=== PATIENT | male | born 2000 | race Caucasian/White ===

== ENCOUNTER → 2020-07-15 16:09 | Outpatient (BNVA) | payer OTHER, SELFPAY | PROVIDERS: Family Provider Family Medicine; PCP Physical Therapist; Visit Provider Nurse Practitioner | DX: S69.92XA Unspecified injury of left wrist, hand and finger(s), initial encounter (principal); X58.XXXA Exposure to other specified factors, initial encounter | CPT/HCPCS: 73110 ==

== ENCOUNTER 2020-07-17 17:57 | Emergency (ER) | payer OTHER, SELFPAY ==
[2020-07-17 18:18] VITALS: BP 167/85; PULSE 82; RESP 18; TEMP 36.3; O2SAT 98; BMI 43.0
--- NOTE | 2020-07-17 18:55 | W.ED.EXTPRO ---
HPI - Extremity Problem General: Chief complaint: Extremity Injury, Upper Stated complaint: left hand pain Time Seen by Provider: 07/17/20 18:46 History of Present Illness: HPI Narrative: Patient here today because of follow-up on wrist injury and that fiberglass splint slipped today Complaint: extremity pain Onset (ago): day(s) Pain Consistency: now resolved Location: left Severity scale (1-10): 1 Associated symptoms: Reports no associated symptoms Review of Systems Narrative: X-ray read from radiology reveals no fracture possible ulnar strain separation. Patient has follow-up appointment with Ortho on Tuesday Musc: Reports: extremity pain Psych: Denies: anxiety or depression PFSH ED PFSH: Social History (Updated 07/17/20 @ 18:23 by Matteo Barajas RN) Smoking and tobacco status: current every day smoker smokeless tobacco Alcohol intake: never Substance/Drug Use: never Physical Exam Const: COMMON NORMALS: no acute distress (Splint in place) Extremity: RIGHT UPPER EXTREMITY: Yes wrist (Patient has good range of motion wrists no swelling. Velcro splint applied) Psych: COMMON NORMALS: mental status grossly normal Course Vital Signs: Vital signs: Vital Signs Temperature 97.3 F L 07/17/20 18:18 Pulse Rate 82 07/17/20 18:18 Respiratory Rate 18 07/17/20 18:18 Blood Pressure 167/85 07/17/20 18:18 Pulse Oximetry 98 07/17/20 18:18 Discharge Plan Discharge Patient Disposition: Home Clinical Impression: Left wrist sprain Qualifiers: Encounter type: initial encounter Qualified Code(s): S63.502A - Unspecified sprain of left wrist, initial encounter Condition: Stable Prescriptions: No Action montelukast [Singulair] 10 mg tablet 10 mg PO DAILY RF: 0 albuterol sulfate [ProAir HFA] 90 mcg/actuation HFA aerosol inhaler 2 puff inhalation Q6H PRNRF: 0 Discharge Orders: Discharge ED (Routine); Ordered 07/17/20 Ordered By: Devonte Berman Referrals: Lupe Rouse [Primary Care Provider] - Discharge Diet: Usual diet Discharge Activity: Increase activity as tolerated Patient Instructions: Wrist Injury (ED), Wrist Sprain (ED) Activity Restrictions/Additional Instructions: Wear splint as needed. If wrist continues to bother you keep appoint with orthopedic clinic on schedule appointment next Tuesday. Can apply ice to area. Try to do exercises with wrist. Can take Tylenol and/or ibuprofen for discomfort. Coding Level of Care Code ED Medical Superintendent for Jennifer Arnold
== END 2020-07-17 19:14 | disposition home or self-care (01) ==
PROVIDERS: Emergency Provider Nurse Practitioner Family; PCP Physical Therapist
DX: S63.502A Unspecified sprain of left wrist, initial encounter (principal); X58.XXXA Exposure to other specified factors, initial encounter; F17.210 Nicotine dependence, cigarettes, uncomplicated
CPT/HCPCS: 29125; 99282

== ENCOUNTER 2020-07-23 14:03 | Outpatient (CLI) | payer OTHER, SELFPAY | END 2020-07-23 14:04 | disposition home or self-care (01) | LOC: SPT 14:03 | PROVIDERS: PCP Physical Therapist; Visit Provider Orthopaedic Surgery | DX: Z46.89 Encounter for fitting and adjustment of other specified devices (principal); S60.212D Contusion of left wrist, subsequent encounter; X58.XXXD Exposure to other specified factors, subsequent encounter | CPT/HCPCS: L3908 ==

== ENCOUNTER → 2022-06-26 10:19 | Outpatient (BNVA) | payer OTHER, SELFPAY | PROVIDERS: PCP Physical Therapist; Visit Provider Nurse Practitioner | DX: J02.0 Streptococcal pharyngitis (principal); J20.9 Acute bronchitis, unspecified | CPT/HCPCS: 87880 ==

== ENCOUNTER 2023-02-07 19:03 | Emergency (ER) | payer OTHER, SELFPAY ==
[2023-02-07 19:18] VITALS: BP 119/77; PULSE 77; RESP 18; TEMP 36.6; O2SAT 97; BMI 43.5
--- NOTE | 2023-02-07 19:29 | ED_ITS ---
HPI - URI/Sore Throat General: Chief Complaint: Upper Respiratory Infection Stated Complaint: Sore Throat\N Time Seen by Provider: 02/07/23 19:20 History of Present Illness: 22-year-old male patient comes in today with complaints of sore throat and generalized malaise. Patient reports symptoms started this morning. Patient appears nontoxic. Patient appears no acute distress. Associated symptoms: Reports chills and nausea; Deny diarrhea or vomiting Review of Systems General: Reports: 10 or more systems reviewed and unremarkable except in HPI and below Const: Reports: chills ENMT: Reports: throat pain Resp: Denies: productive cough GI: Reports: nausea; Denies: vomiting, diarrhea or constipation PFSH ED PFSH: Social History Smoking and tobacco status: current every day smoker smokeless tobacco Alcohol intake: never Substance/Drug Use: never Physical Exam Const: COMMON NORMALS: alert HENMT: COMMON NORMALS: normocephalic HEAD & SCALP: normocephalic THROAT: posterior oropharynx abnormal erythema Neck/C-Spine: COMMON NORMALS: full ROM and no lymphadenopathy Resp: COMMON NORMALS: normal respiratory effort and clear to auscultation bilaterally AUSCULTATION: clear to auscultation bilaterally Cardio: COMMON NORMALS: regular rate RATE: regular rate Extremity: COMMON NORMALS: no pedal edema Neuro: SENSORIUM/ORIENTATION: Yes alert Skin: COMMON NORMALS: turgor normal GENERAL SKIN EXAM: turgor normal Course Vital Signs: Vital signs: Vital Signs Temperature 97.9 F 02/07/23 19:18 Pulse Rate 77 02/07/23 19:18 Respiratory Rate 18 02/07/23 19:18 Blood Pressure 119/77 02/07/23 19:18 Pulse Oximetry 97 02/07/23 19:18 Oxygen Delivery Me thod Room Air 02/07/23 19:18 MDM - URI/Sore Throat Medical Decision Making 22-year-old male patient comes in today with complaints of sore throat and malaise. On exam patient's posterior pharynx is erythematous. Lungs are clear to auscultation. Abdomen soft nontender. Patient moves all extremities well. Differential diagnosis includes not limited to strep pharyngitis, upper respiratory infection, viral syndrome. Strep test was negative. COVID PCR test was sent to lab and was outstanding at discharge. Antigen test was not sent due to illness just starting today. Patient knows to contact ER for final results in 2 to 3 hours. Patient was given work note for 2 days. Patient was stable and discharged home with supportive care instructions. Lab Data Laboratory Results Group A Strep Rapid Negative (Negative) 02/07/23 19:34 Discharge Plan Discharge Patient Disposition: Home Clinical Impression: Upper respiratory infection Qualifiers: URI type: unspecified URI Qualified Code(s): J06.9 - Acute upper respiratory infection, unspecified Condition: Stable Prescriptions: No Action montelukast [Singulair] 10 mg tablet 10 mg PO DAILY albuterol sulfate [ProAir HFA] 90 mcg/actuation HFA aerosol inhaler 2 puff inhalation Q6H PRN (DME) Cock Up Splint See Rx Instructions .ROUTE .MEDSUPPLY Qty: 1 0RF Rx Instructions: As directed prednisone 20 mg tablet 40 mg PO DAILY 5 Days Qty: 10 0RF benzonatate 200 mg capsule 200 mg PO TID PRN (Reason: cough) Qty: 30 0RF doxycycline hyclate 100 mg capsule 100 mg PO BID 7 Days Qty: 14 0RF Discharge Orders: Discharge ED (Routine); Ordered 02/07/23 Ordered By: Lyndon Riley Referrals: Lupe Rouse [Primary Care Provider] - Discharge Diet: Usual diet Discharge Activity: Increase activity as tolerated Patient Instructions: Upper Respiratory Infection (ED) Activity Restrictions/Additional Instructions: Home and rest. Drink plenty of water and fluids. Use acetaminophen and ibuprofen for discomfort. Follow-up with primary care as needed. Return to emergency department for worsening symptoms such as high fever greater than 100.4, inability to hold fluids down, increasing shortness of breath or severe chest pain. Stand Alone Forms: Work/School Release Coding Level of Care Code ED Human Resources Executive for Jennifer Arnold
[2023-02-07 20:04] LABS: Rapid Strep A Test Negative (Negative)
[2023-02-07 21:54] LABS: Adenovirus Not Detected (NOT DETECT); Chlamydia Pneumoniae Not Detected (NOT DETECT); Human Metapneumovirus Not Detected (NOT DETECT); Human Rhinovirus/Enterovirus Not Detected (NOT DETECT); Influenza A Not Detected (NOT DETECT); Influenza A H1 Not Detected (NOT DETECT); Influenza A H1-2009 Not Detected (NOT DETECT); Influenza A H3 Not Detected (NOT DETECT); Influenza B Not Detected (NOT DETECT); Mycoplasma Pneumoniae Not Detected (NOT DETECT); Parainfluenza Virus Type 1 Not Detected (NOT DETECT); Parainfluenza Virus Type 2 Not Detected (NOT DETECT); Parainfluenza Virus Type 3 Not Detected (NOT DETECT); Parainfluenza Virus Type 4 Not Detected (NOT DETECT); Respiratory Syncytial Virus A Not Detected (NOT DETECT); Respiratory Syncytial Virus B Not Detected (NOT DETECT); SARS-COV-2 Not Detected (NOT DETECT)
[2023-02-07 22:31] LABS: Coronavirus 229E,HKU1,NL63,OC4 Detected (NOT DETECT)
--- NOTE | 2023-02-07 22:35 | PC.NURSE ---
attempted to call pt with positive covid results. pt did not answer the phone and wa not able t leave a voicemail
== END 2023-02-07 20:28 | disposition home or self-care (01) ==
PROVIDERS: Emergency Provider Nurse Practitioner Family; PCP Physical Therapist
DX: J06.9 Acute upper respiratory infection, unspecified (principal); F17.220 Nicotine dependence, chewing tobacco, uncomplicated; Z20.822 Contact with and (suspected) exposure to COVID-19
CPT/HCPCS: 87081; 87635; 87880; 99283

== ENCOUNTER 2023-04-23 15:35 | Emergency (ER) | payer OTHER, SELFPAY ==
--- NOTE | 2023-04-23 16:01 | ECG_ITS ---
[facility] Test Date: 2023-04-23 Pat Name: Taco Mariee Department: Room: Gender: Male [employer] [employer]: : 2000 Requested By: Dejuan Weeks Order Number: [id number] Tosin MD: Jeanne Dai M.D. Measurements Intervals [place] Rate: 84 P: 40 MS: 150 QRS: 32 QRSD: 100 T: 11 QT: 332 QTc: 394 Interpretive Statements SINUS RHYTHM WITH MARKED SINUS ARRHYTHMIA No previous ECG available for comparison Normal EKG Electronically Signed On 04-24-2023 13:46:00 CLINICAL MICROBIOLOGIST by Jeanne Dai M.D. [id number]
--- NOTE | 2023-04-23 16:01 | XRR_ITS ---
PROCEDURE INFORMATION: Exam: XR Chest Exam date and time: 04/23/2023 4:27 PM Age: 23 years old Clinical indication: Other: Syncope TECHNIQUE: Imaging protocol: Radiologic exam of the chest. Views: 1 view. COMPARISON: No relevant prior studies available. FINDINGS: Lungs: Unremarkable. No consolidation. Pleural spaces: Unremarkable. No pleural effusion. No pneumothorax. Heart/Mediastinum: Unremarkable. No cardiomegaly. Bones/joints: Mild scoliosis. XR/XR chest 1V portable [id number] IMPRESSION: No acute disease.
[2023-04-23 16:04] VITALS: BP 150/74; PULSE 75; RESP 18; TEMP 36.7; O2SAT 98; BMI 41.4
[2023-04-23 17:47] LABS: Basophils # 0.1 10^3/uL (0.0-0.1); Basophils % 0.6 %; Eosinophils # 0.4 10^3/uL (0.0-0.8); Eosinophils % 3.1 %; Hematocrit 46.8 % (37-53); Lymphocytes # 2.1 10^3/uL (0.8-4.8); Lymphocytes % 16.7 %; Mean Corpuscular HGB Conc 34.6 g/dL (30-55); Mean Corpuscular Hemoglobin 29.4 pg (27-33); Mean Corpuscular Volume 84.9 fl (82-101); Mean Platelet Volume 9.6 fL (7.4-10.4); Monocytes # 0.7 10^3/uL (0.2-0.9); Neutrophils # 8.93 10^3/uL (1.8-7.7); Nucleated Red Blood Cells % 0 %; Platelet Count 259 10^3/cmm (157-399); Red Blood Count 5.51 10^6/uL (3.85-5.65); Red Cell Distribution Width 12.1 % (12.1-15.1); White Blood Count 12.24 10^3/uL (3.29-11.43)
[2023-04-23 18:01] LABS: Alanine Aminotransferase 28 U/L (0-41); Albumin Level 4.3 g/dL (3.5-5.2); Alkaline Phosphatase 72 U/L (40-130); Aspartate Amino Transferase 17 U/L (0-40); Blood Urea Nitrogen 16 mg/dL (6-20); Calcium 9.2 mg/dL (8.5-10.5); Carbon Dioxide 23 mmol/L (22-29); Chloride 105 mmol/L (98-107); Globulin 2.7 g/dL (1.3-4.6); Glomerular Filtration Rate 118.8 mL/min (90-130); Glucose 89 mg/dL (65-115); Osmolality Calculated 289 mOsm/kg (285-295); Sodium 139 mmol/L (136-145); Total Bilirubin 0.4 mg/dL (0.15-1.2)
== END 2023-04-23 20:01 | disposition left against medical advice (07) ==
PROVIDERS: Emergency Medicine; Emergency Provider Family Medicine; PCP Physical Therapist
DX: Z53.21 Procedure and treatment not carried out due to patient leaving prior to being seen by health care provider (principal)
CPT/HCPCS: 71045; 80053; 85025; 93005; 93010; 99285

== ENCOUNTER 2023-08-03 09:13 | Outpatient (CLI) | payer OTHER, SELFPAY ==
--- NOTE | 2023-08-03 09:23 | XRR_ITS ---
PROCEDURE INFORMATION: Exam: XR Left Finger(s) Exam date and time: 08/03/2023 9:30 AM Age: 23 years old Clinical indication: Injury or trauma; Other: Smashed left finger in piston press; Crushing; Index finger; Additional info: [place] to index finger TECHNIQUE: Imaging protocol: Radiologic exam of the left fingers. Views: Minimum 2 views. COMPARISON: CR XR wrist LT min 3V* [id number] 07/15/2020 4:11 PM FINDINGS: Bones/joints: Small bone fragment from the tip of the bony ungual tuft of the index finger. No more proximal fracture is seen. Soft tissues: Normal. XR/XR finger LT min 2V [id number] IMPRESSION: Small fracture through the bony ungual tuft.
== END 2023-08-03 09:14 | disposition home or self-care (01) ==
LOC: RAD 09:14
PROVIDERS: PCP Physical Therapist; Visit Provider Nurse Practitioner Family
DX: S62.631A Displaced fracture of distal phalanx of left index finger, initial encounter for closed fracture (principal); W31.89XA Contact with other specified machinery, initial encounter
CPT/HCPCS: 73140

== ENCOUNTER 2023-08-03 10:50 | Emergency (ER) | payer OTHER, SELFPAY ==
[2023-08-03 11:01] VITALS: BP 161/105; PULSE 72; RESP 18; TEMP 36.7; O2SAT 99
[2023-08-03] MEDS: tetanus-dipt-pertussis 0.5 mL SDV IM (12:08)
[2023-08-03] MEDS: ceFAZolin 1,000 mg SDV 1000 MG IVP (12:09)
[2023-08-03] MEDS: bacitracin ointment Pkt 1 EACH TOPICAL (12:09)
--- NOTE | 2023-08-03 12:24 | PC.NURSE ---
wrapped pt's L index finger with non-stick dressing and gauze wrap. cleaned with normal saline & betadine around wound site.
--- NOTE | 2023-08-03 12:38 | ED_ITS ---
HPI - Extremity Problem General: Chief complaint: Extremity Injury, Upper Stated complaint: left hand pointer finger injury Time Seen by Provider: 08/03/23 11:18 History of Present Illness: 23-year-[facility] of left index finger injury. He was at work using a machine type of press when he got an avulsion injury over the medial aspect of the distal tip of the left index finger. No other injury. Associated symptoms: Deny chest pain or fever(s) Review of Systems Const: Denies: fever(s) or chills Card: Denies: chest pain Resp: Denies: dyspnea GI: Denies: abdominal pain PFSH ED PFSH: Social History Smoking and tobacco/nicotine status: current every day tobacco/nicotine user smokeless tobacco Alcohol intake: never Substance/Drug Use: never Physical Exam Const: COMMON NORMALS: no acute distress GENERAL APPEARANCE: cooperative and comfortable ORIENTATION/CONSCIOUSNESS: Yes awake, Yes oriented to person, Yes oriented to place and Yes oriented to time HENMT: COMMON NORMALS: normocephalic, atraumatic and hearing grossly normal bilaterally HEAD & SCALP: normocephalic and atraumatic Extremity: OTHER: Examination of the left index finger the tissue on the palmar side of the distal phalanx is avulsed on the medial half. No active bleeding no exposed bone. The nailbed itself is not involved Neuro: SENSORIUM/ORIENTATION: Yes oriented to person, Yes oriented to place and Yes oriented to time Skin: COMMON NORMALS: no rashes or lesions noted GENERAL SKIN EXAM: no rashes or lesions noted Course Vital Signs: Vital signs: Vital Signs Temperature 98.1 F 08/03/23 11:01 Pulse Rate 72 08/03/23 11:01 Respiratory Rate 18 08/03/23 11:01 Blood Pressure 161/105 08/03/23 11:01 Pulse Oximetry 99 08/03/23 11:01 Oxygen Delivery Me thod Room Air 08/03/23 11:01 MDM - Extremity (Nontraumatic) Medical Decision Making Avulsion of the finger pad. The bone is not fully exposed there is a distal tuft fracture. Patient was given tetanus update also given Ancef. Discharged home on oral antibiotics and topical antibiotic wound care changes daily. I discussed Dr. Petersen he will see the patient tomorrow in the office. Trial for healing by secondary intent if able if uncomfortable needing revision depending on how this progresses for him discussed with patient he expresses understanding. Patient should be off work until released by orthopedics. Medical Records I reviewed the patient's medical records. Lab Data I reviewed the patient's lab results. (X-rays) All radiology interpretation(s) finalized by discharge Discharge Plan Discharge Patient Disposition: Home Clinical Impression: Avulsion of finger tip, Open fracture of tuft of distal phalanx of finger Condition: Stable Prescriptions: New hydrocodone-acetaminophen 5-325 mg tablet 1 tab PO Q6H PRN (Reason: pain) Qty: 20 0RF Bactrim DS 800-160 mg tablet 1 tab PO BID 7 Days Qty: 14 0RF No Action montelukast [Singulair] 10 mg tablet 10 mg PO DAILY PRN (Reason: allergies) (DME) Cock Up Splint See Rx Instructions .ROUTE .MEDSUPPLY Qty: 1 0RF Rx Instructions: As directed cephalexin 500 mg capsule 500 mg PO TID 7 Days Qty: 21 0RF Discharge Orders: Discharge ED (Routine); Ordered 08/03/23 Ordered By: Ellis Huang Referrals: Lupe Rouse [Primary Care Provider] - Discharge Diet: Usual diet Discharge Activity: Limit activity as instructed Patient Instructions: Opioid Safety, Pain Management Activity Restrictions/Additional Instructions: Thank you for choosing [facility] for your healthcare needs today. Please realize this is an emergency room and that we are providing you with a medical screening exam and this may not be complete and all inclusive of all the testing and or work up that you may need to determine your ailment or severity of your illness. It is very important that you follow up as instructed or that you return to the Emergency Department should you have concerns or if your condition changes or worsens in any way. Case management will contact you to make arrangements for follow-up with orthopedics for care of the injury. Stand Alone Forms: Work/School Release Coding Level of Care Code ED Box Sealing Inspector for Jennifer Arnold
--- NOTE | 2023-08-03 18:00 | DCPLANNER ---
message sent to ortho for a follow up.
== END 2023-08-03 13:12 | disposition home or self-care (01) ==
PROVIDERS: Emergency Provider Family Medicine; PCP Physical Therapist
DX: S61.211A Laceration without foreign body of left index finger without damage to nail, initial encounter (principal); S62.631B Displaced fracture of distal phalanx of left index finger, initial encounter for open fracture; F17.220 Nicotine dependence, chewing tobacco, uncomplicated; W31.89XA Contact with other specified machinery, initial encounter; Y99.0 Civilian activity done for income or pay; Z23 Encounter for immunization
CPT/HCPCS: 90715; 96374; 99284; J0690

== ENCOUNTER 2023-08-03 18:46 | Emergency (ER) | payer OTHER, SELFPAY ==
[2023-08-03 19:01] VITALS: BP 143/82; PULSE 72; RESP 15; TEMP 36.7; O2SAT 99
--- NOTE | 2023-08-03 19:22 | ED_ITS ---
HPI - Extremity Problem General: Chief complaint: Extremity Injury, Upper Stated complaint: bleeding post injury Time Seen by Provider: 08/03/23 19:03 Source: patient Mode of arrival: ambulatory Limitations: no limitations History of Present Illness: 23-year-old male who had smashed his lef t index finger earlier today he is seen here he does have a open tuft fracture he is set up to see hand surgery in [place] he states that he had rinsed his finger and had some bleeding is since stopped he went to have the wound rechecked he denies any new injuries or changes Associated symptoms: Deny chest pain or fever(s) Review of Systems Const: Denies: fever(s), chills, body aches or change in appetite ENMT: Denies: throat pain or dental pain Card: Denies: chest pain Resp: Denies: dyspnea GI: Denies: abdominal pain, nausea, vomiting or diarrhea Musc: Denies: neck pain or back pain PFSH ED 2 PFSH: Social History Smoking and tobacco/nicotine status: current every day tobacco/nicotine user smokeless tobacco Alcohol intake: never Substance/Drug Use: never Physical Exam Const: COMMON NORMALS: no acute distress, patient oriented x3 and healthy appearing HENMT: COMMON NORMALS: normocephalic and atraumatic HEAD & SCALP: normocephalic and atraumatic Neck/C-Spine: COMMON NORMALS: full ROM Chest: COMMONS NORMALS: normal inspection of the chest Resp: COMMON NORMALS: normal respiratory effort Extremity: COMMON NORMALS: full ROM NARRATIVE EXTREMITY EXAM: Patient does have 1 distal tip of left finger no active bleeding at this time no erythema Neuro: COMMON NORMALS: patient oriented x3, moves all extremities and no focal motor deficits Psych: COMMON NORMALS: mental status grossly normal, Normal thought process present and cooperative THOUGHT PROCESS: Normal thought process present Skin: COMMON NORMALS: no rashes or lesions noted GENERAL SKIN EXAM: no rashes or lesions noted Course Vital Signs: Vital signs: Vital Signs Temperature 98.0 F 08/03/23 19:01 Pulse Rate 72 08/03/23 19:01 Respiratory Rate 15 08/03/23 19:01 Blood Pressure 143/82 08/03/23 19:01 Pulse Oximetry 99 08/03/23 19:01 Oxygen Delivery Me thod Room Air 08/03/23 19:01 MDM - Extremity (Nontraumatic) Medical Decision Making Patient presents here for wound check he has no active bleeding wounds well- appearing did redress that he is to follow-up with hand surgery as scheduled Medical Records I reviewed the patient's medical records. No radiology studies performed this visit Discharge Plan Discharge Patient Disposition: Home Clinical Impression: Avulsion of finger tip, Visit for wound check Condition: Stable Prescriptions: No Action montelukast [Singulair] 10 mg tablet 10 mg PO DAILY PRN (Reason: allergies) (DME) Cock Up Splint See Rx Instructions .ROUTE .MEDSUPPLY Qty: 1 0RF Rx Instructions: As directed cephalexin 500 mg capsule 500 mg PO TID 7 Days Qty: 21 0RF hydrocodone-acetaminophen 5-325 mg tablet 1 tab PO Q6H PRN (Reason: pain) Qty: 20 0RF Bactrim DS 800-160 mg tablet 1 tab PO BID 7 Days Qty: 14 0RF Discharge Orders: Discharge ED (Routine); Ordered 08/03/23 Ordered By: Cora Das Referrals: Lupe Rouse [Primary Care Provider] - Discharge Diet: Advance as tolerated Discharge Activity: Resume usual activity Patient Instructions: Wound Care (General) Coding Level of Care Code ED Global Engineering Manager for Jennifer Arnold
== END 2023-08-03 19:30 | disposition home or self-care (01) ==
PROVIDERS: Emergency Provider Emergency Medicine; PCP Physical Therapist
DX: Z48.00 Encounter for change or removal of nonsurgical wound dressing (principal); S61.211A Laceration without foreign body of left index finger without damage to nail, initial encounter; F17.220 Nicotine dependence, chewing tobacco, uncomplicated; X58.XXXA Exposure to other specified factors, initial encounter
CPT/HCPCS: 99282